=== PATIENT | male | born 1965 | race Caucasian/White ===

== ENCOUNTER 2019-06-07 21:04 | Emergency (ER) | payer OTHER ==
--- NOTE | 2019-06-07 21:08 | ED Physician Documentation ---
Chest Pain - HISTORIAN Historian: patient - HPI Stated Complaint: chest pain for a few hours Chief Complaint: Chest Pain Onset: days ago (4) Timing: sudden onset Duration: constant, waxing, waning Last known Well Date: 06/07/19 Last Known Well Time: 11:00 Context: sleep Severity: moderate Quality: pressure Chest Pain Radiation: no radiation Chest Pain Signs/Symptoms: diaphoresis (although resolved ). denies: nausea, vomiting, dizziness, dyspnea, tachypnea, tachycardia, hypotension Worsened By: nothing Relieved By: nothing Further Comments: yes (He states for over a week he has not felt "well" states he went to sleep around 11-12 today due to "not feeling well" and when he woke about 5 pm he had some chest pain and sweating. No nasuea and no pain raditation. No injury. No shortness of breath) - ROS CONST: none MS/LYMPH: none GI/: none EYES/ENT: none SKIN/ENDO: none NEURO/PSYCH: none - PAST HX TX risk factors: hypertension DVT/PE Risk Factors: none TAD/AAA risk factors: none Neuro deficit: none GI disease: none Lung disease: none Surgeries/Procedures: none Immunizations: UTD - SOCIAL HX Smoking History: non-smoker Alcohol Use: none Drug Use: none - FAMILY HX Family HX: none - REVIEWED ASSESSMENTS Nursing Assessment Reviewed: Yes Vitals Reviewed: Yes Progress - Progress Progress: 215: after further discussion he was not woke with pain. He woke at 5 pm and he was up and doing house things about 545 pm the chest pain started with diaphoresis. He states at that time the pain was 10/10. HE did take asprin at home. DG 2200: denies any significant pain states 4/10 and he was a 7/10. Denies any shortness of breath or other symptoms. DG 2215: Discussed case with Dr Irving she would like him to have a nitro and transfer is accepted DG ED Results Lab/Radiology - Radiology Radiology Impressions: Portable chest History: Chest pain Portable chest dated June 07, 2019 is without prior radiographs for comparison. Heart size is within normal limits. Pulmonary vascularity is normal. There is no confluent infiltrate or pleural effusion. Fusion hardware of the lower cervical spine is present. Impression: No active disease. Electronically signed on Jun 07, 2019 9:55:46 PM CDT by: Morena Kaye Chest Pain Physical Exam - EXAM General Appearance: no acute distress, alert EENT: eye inspection normal, no signs of dehydration Neck: nml inspection Respiratory: no resp. distress, chest non-tender, nml breath sounds CVS: reg. rate & rhythm, no murmur Abdomen: soft, no distension, non-tender Skin: warm/dry, normal color Extremities: non-tender, normal range of motion, no evidence of injury, no edema Neuro: oriented X3 Discharge Clincal Impression: Non-STEMI (non-ST elevated myocardial infarction) Referrals: Primary Doctor,No [REFERRING] - 2 Days Comments: Dr Irving is accepting [facility] ER DG Condition: Critical Disposition: 02 XFER SHT-TRM HOSP Decision to Admit: NO Date of Decison to Admit: 06/07/19 Decision Time: 22:18
[2019-06-07 21:46] LABS: BASOPHILS % 0.9 % (0.0-1.5); NEUTROPHILS # 19.4 # k/uL (1.4-7.7)
[2019-06-07] MEDS: NITROGLYCERIN 0.4 MG TAB.SUBL SL ONE ×2 (22:19→22:34)
[2019-06-07 22:21] VITALS: BP 162/99
[2019-06-07] MEDS: 0.9 % SODIUM CHLORIDE 1,000 ML IV ONE (22:53)
[2019-06-07] MEDS: ASPIRIN 81 MG CHEW TAB PO ONE (22:53)
[2019-06-07 23:16] LABS: eGFR (Non-African) > 60
--- NOTE | 2019-06-08 10:08 | Diagnostic Imaging Report ---
LANDRY SALINAS [facility] [address] [facility] [address] [place], [place]. [address] Report Submission Date: Jun 07, 2019 9:55:46 PM CDT Patient Study Name: LISA ZAPIEN Date: Jun 07, 2019 9:25:03 PM CDT Modality Type: DX Gender: M Description: CHEST 1VIEW : 61 Institution: [facility] Physician: LANDRY SALINAS Portable chest History: Chest pain Portable chest dated June 07, 2019 is without prior radiographs for comparison. Heart size is within normal limits. Pulmonary vascularity is normal. There is no confluent infiltrate or pleural effusion. Fusion hardware of the lower cervical spine is present. Impression: No active disease. Electronically signed on Jun 07, 2019 9:55:46 PM CDT by: Morena MOTA
== END 2019-06-07 22:38 | disposition short-term general hospital (02) ==
LOC: ED 21:04
DX: I21.4 Non-ST elevation (NSTEMI) myocardial infarction (principal)
CPT/HCPCS: 71045; 80053; 82553; 84484; 85025; 93005; 96360; 99283; 99284; S1016